=== PATIENT | male | born 1960 | race Caucasian/White ===

== ENCOUNTER 2018-09-25 14:16 | Emergency (ER) | payer MEDICARE ==
[~2018-09-25] VITALS: Ht 180.3 cm; Wt 99.8 kg
[~2018-09-25 14:16] MED LIST: ASPI-482 PO; CHOL20002 PO; CYCL10TA2 PO; DONE10TA61 PO; FLUT1DIS IH; FLUT9.9S NS; FURO20TA3 PO; GABA800T5 PO; INSU100I13 SQ; INSU100I17 SQ; LEXAPRO20 MG PO; LISI10TA2 PO; METF10007 PO; METO100T7 PO; NIAC1000 PO; PROAIR RESPICL90 MCG IH; SIMV20TA3 PO; TIOT18CA IH; TIZA2TAB PO
[2018-09-25 14:20] VITALS: BP 168/87
--- NOTE | 2018-09-25 14:54 | PHYS DOC ---
Past Medical History Past Medical History: COPD, Depression, Diabetes-Type II, Hypertension, Other Additional Past Medical Histor: Hyperlipidemia, Neruopathy Past Surgical History: No Surgical History Additional Information: Quit 20 years ago Alcohol Use: None Drug Use: None Adult General Chief Complaint Chief Complaint: FINGER INJURY HPI HPI Patient is a 58 year old [male] who presents with [pain and deformity to his right middle finger. Patient reports yesterday he had jammed his finger while he was working on something, reports he continues to have some discomfort to digit. States he did have a splint at home that he had put on it which seemed to help. But noted when he takes the splint off his finger returns to deformity. States full range of motion to other digits and extremities, States he has taken some ibuprofen and it seems to help. Reports it happened approximately 11:00 day prior, and he had tried pulling on his finger but it did not seem to improve. ] Review of Systems Review of Systems Constitutional: Denies fever or chills [] Eyes: Denies change in visual acuity, redness, or eye pain [] HENT: Denies nasal congestion or sore throat [] Respiratory: Denies cough or shortness of breath [] Cardiovascular: No additional information not addressed in HPI [] GI: Denies abdominal pain, nausea, vomiting, bloody stools or diarrhea [] : Denies dysuria or hematuria [] Musculoskeletal: Denies back pain or joint pain, complains of deformity to 3rd digit right hand [] Integument: Denies rash or skin lesions [] Neurologic: Denies headache, focal weakness or sensory changes [] Endocrine: Denies polyuria or polydipsia [] All other systems were reviewed and found to be within normal limits, except as documented in this note. Allergies Allergies Allergies Coded Allergies Type Severity Reaction Last Updated Verified No Known Drug Allergies 08/20/15 No Physical Exam Physical Exam Constitutional: Well developed, well nourished, no acute distress, non-toxic appearance. [] HENT: Normocephalic, atraumatic, bilateral external ears normal, oropharynx moist, no oral exudates, nose normal. [] Eyes: PERRLA, EOMI, conjunctiva normal, no discharge. [] Neck: Normal range of motion, no tenderness, supple, no stridor. [] Cardiovascular:Heart rate regular rhythm, no murmur [] Lungs & Thorax: Bilateral breath sounds clear to auscultation [] Abdomen: Bowel sounds normal, soft, no tenderness, no masses, no pulsatile masses. [] Skin: Warm, dry, no erythema, no rash. [] Back: No tenderness, no CVA tenderness. [] Extremities: No tenderness, no cyanosis, no clubbing, ROM intact, no edema. Right 3rd finger with splint in place. Patient noted to have deformity to DIP of 3rd digit, no tenderness, no swelling, no erythema. No lesions noted. sensation intact. Capillary refill brisk. [] Neurologic: Alert and oriented X 3, normal motor function, normal sensory fu nction, no focal deficits noted. [] Psychologic: Affect normal, judgement normal, mood normal. [] Current Patient Data Vital Signs Vital Signs Date Time Temp Pulse Resp B/P (MAP) Pulse Ox O2 Delivery O2 Flow Rate FiO2 09/25/18 14:20 97.8 76 20 168/87 (114) 97 Room Air 97.8 EKG EKG [] Radiology/Procedures Radiology/Procedures [No acute fracture noted. Ligamentous or tendon injury of left third finger ] Course & Med Decision Making Course & Med Decision Making Pertinent Labs and Imaging studies reviewed. (See chart for details) [Attempt to reduce digit without success, patient able to move digit partially, tolerates traction and hyperextension without significant discomfort. Due to injury being approximately 28 hours old, likely causing digit to not reduce. Will have digit splinted again and have patient follow up with ortho. Patient in agreement with plan of care] Dragon Disclaimer Dragon Disclaimer This electronic medical record was generated, in whole or in part, using a voice recognition dictation system. Departure Departure Impression: Primary Impression: Closed dislocation of third metacarpal bone of left hand Disposition: HOME, SELF-CARE Condition: GOOD Referrals: ADAMARIS NEELY MD (PCP) DEBORAH VU MD Patient Instructions: Finger Dislocation, Uemp-co-Szvl Additional Instructions: Due to the amount of time it has been out, we are unable to get the bone back in place. The radiologist read shows they suggest ligament or tendon injury to that digit as well, this could be preventing it from staying back in place. There was nothing broken on the x ray today Keep wearing the splint on your finger Follow up with Orthopedics - Dr Vu's office. DELIA WALL APRN Sep 25, 2018 14:54
--- NOTE | 2018-09-25 15:24 | RAD ---
Left hand 3 views. HISTORY: Left third finger deformity, jammed hand on bathtub one day ago 3 views were taken of the left hand. There is no fracture. There is posterior deviation of the distal phalanx of the third finger suggesting ligamentous injury or flexor tendon disruption. IMPRESSION: 1. No acute fracture. 2. Ligamentous or tendon injury left third finger. Electronically signed by: Pardeep Germain MD (09/25/2018 3:22 PM) [id number]
== END 2018-09-25 15:50 | disposition home or self-care (01) ==
LOC: ER 14:16
DX: S63.263A Dislocation of metacarpophalangeal joint of left middle finger, initial encounter (principal); J44.9 Chronic obstructive pulmonary disease, unspecified; I10 Essential (primary) hypertension; E11.40 Type 2 diabetes mellitus with diabetic neuropathy, unspecified; E78.5 Hyperlipidemia, unspecified; Z87.891 Personal history of nicotine dependence; W23.0XXA Caught, crushed, jammed, or pinched between moving objects, initial encounter; Y93.89 Activity, other specified; Y92.89 Other specified places as the place of occurrence of the external cause; Y99.8 Other external cause status
CPT/HCPCS: 26700; 73130; 99284-25

== ENCOUNTER → 2018-10-15 | Outpatient (CLI) | payer MEDICARE ==
[2018-09-25 14:20] VITALS: BP 168/87
--- NOTE | 2018-10-15 10:57 | CARD ---
MR#: [id number] Date of Study: 10/15/2018 Ordering Physician: HARINDER HATHAWAY, Referring Physician: HARINDER HATHAWAY, Tech: Jacey Ritchie [facility] APPROVED REPORT EXAM: Two-dimensional and M-mode echocardiogram with Doppler and color Doppler. Other Information Quality : AverageHR: 62bpm Rhythm : NSR INDICATION Cardiomyopathy 2D DIMENSIONS RVDd3.5 (2.9-3.5cm)Left Atrium(2D)3.5 (1.6-4.0cm) IVSd0.9 (0.7-1.1cm)Aortic Root(2D)3.0 (2.0-3.7cm) LVDd5.4 (3.9-5.9cm)LVOT Diameter2.0 (1.8-2.4cm) PWd0.8 (0.7-1.1cm)LVDs4.2 (2.5-4.0cm) FS (%) 22.4 %SV63.7 ml LVEF(%)45.0 (>50%) M-Mode DIMENSIONS Left Atrium(MM)4.02 (2.5-4.0cm)Aortic Root3.05 (2.2-3.7cm) Aortic Valve AoV Peak Dave.116.1cm/sAoV VTI24.4cm AO Peak GR.5.4mmHgLVOT Peak Dave.73.5cm/s AO Mean GR.3mmHgAVA (VMAX)1.90cm2 NIKKI (VTI)1.90cm2 Mitral Valve MV E Finqfyqd09.4cm/sMV DECEL GJAP010ik MV A Zvxrfkqm98.3cm/sE/A Ratio0.7 Pulmonary Valve PV Peak Bwyjppaz06.4cm/s Tricuspid Valve TR P. Gcyziofb935vq/sRAP WQZQEXBY0yaDm TR Peak Gr.93icFrLEOC84kbRq LEFT VENTRICLE The left ventricle is normal size. There is normal left ventricular wall thickness. Left ventricle sy stolic function is mildly diminished. The Ejection Fraction is 45-50%. There is global hypokinesis of the left ventricle. Transmitral Doppler flow pattern is Grade I-abnormal relaxation pattern. RIGHT VENTRICLE The right ventricle is normal size. There is normal right ventricular wall thickness. The right ventr icular systolic function is normal. ATRIA The left atrium size is normal. The right atrium size is normal. The interatrial septum is intact wit h no evidence for an atrial septal defect or patent foramen ovale as noted on 2-D or Doppler imaging. AORTIC VALVE The aortic valve is normal in structure and function. The aortic valve is trileaflet. Doppler and Col or Flow revealed trace aortic regurgitation. There is no significant aortic valvular stenosis. There is no aortic valvular vegetation. MITRAL VALVE The mitral valve is normal in structure and function. There is no evidence of mitral valve prolapse. There is no mitral valve stenosis. Doppler and Color-flow revealed trace to mild mitral regurgitation . TRICUSPID VALVE The tricuspid valve is normal in structure and function. Doppler and Color Flow revealed mild tricusp id regurgitation. The PA pressure was estimated at 27 mmHg. There is no tricuspid valve prolapse or v egetation. There is no tricuspid valve stenosis. PULMONIC VALVE The pulmonary valve is normal in structure and function. Doppler and Color Flow revealed trace pulmon ic valvular regurgitation. There is no pulmonic valvular stenosis. GREAT VESSELS The aortic root is normal in size. The ascending aorta is normal in size. The IVC is normal in size a nd collapses >50% with inspiration. PERICARDIAL EFFUSION There is no evidence of significant pericardial effusion. Critical Notification Critical Value: No <Conclusion> Left ventricle systolic function is mildly diminished. The Ejection Fraction is 45-50%. Transmitral Doppler flow pattern is Grade I-abnormal relaxation pattern. Trace to mild mitral regurgitation. Mild tricuspid regurgitation. The PA pressure was estimated at 27 mmHg. There is no evidence of significant pericardial effusion. Signed by : Pepito Troy, Electronically Approved : 10/15/2018 10:56:40
--- NOTE | 2018-10-15 14:29 | RAD ---
MR#: [id number] Date of Study: 10/15/2018 Ordering Physician: HARINDER TRUONG, Referring Physician: HARINDER TRUONG, Tech: Mitra Pickard RVT,GUILLERMO APPROVED REPORT Patient Location: OUT-PATIENT Indications Claudication: PAD Risk Factors Hypertension Hyperlipidemia Smoking VELOCITY AND DOPPLER WAVEFORM ANALYSIS RIGHT cm/secWaveformSeverity LEFT cm/secWaveform Severity pCFA 118.5TriphasicpCFA 112.5Triphasic Prof Fem Art. 50.3BiphasicProf Fem Art. 55.7Biphasic Fem Art Prox. 98.1TriphasicFem Art Prox. 112.5Triphasic Fem Art Mid. 100.9TriphasicFem Art Mid. 106.2Triphasic Fem Art Dist. 87.0TriphasicFem Art Dist. 88.3Triphasic Pop Art(Fossa) 61.1TriphasicPop Art(AK) 62.0Triphasic COMMISSIONS COORDINATOR Prox. 63.6BiphasicPTA Prox. 61.1Biphasic COMMISSIONS COORDINATOR Dist. 105.2TriphasicPTA Dist. 89.7Triphasic Per Art Dist.58.6BiphasicPer Art Dist.75.9Biphasic RENETTA Dist. 64.9BiphasicATA Dist. 81.0Biphasic DPA 71BiphasicDPA 96Biphasic Findings Grayscale images of the bilateral lower extremity arterial vessels reveals mild diffuse plaque. Spectral waveforms are mostly triphasic and biphasic with velocities as noted above. There is three-v essel runoff below the knee. No significant focal stenosis identified. Critical Notification Critical Value: No <Conclusion> No focal stenosis identified bilaterally. Signed by : Harinder Truong, Electronically Approved : 10/15/2018 14:29:10
--- NOTE | 2018-10-15 14:31 | RAD ---
MR#: [id number] Date of Study: 10/15/2018 Ordering Physician: HARINDER TRUONG, Referring Physician: HARINDER TRUONG, Tech: Mitra Pickard RVT,GUILLERMO APPROVED REPORT Patient Location: OUT-PATIENT Risk Factors PAD Hypertension Smoking Duplex Results A/PTransverseLongitudinal Proximal Aorta 2.6cm2.5cm Mid Aorta 2.0cm1.9cm Distal Aorta 1.9cm1.6cm Rt. Common Iliac Artery1.1cm0.8cm Lt. Common Iliac Artery 1.1cm1.1cm Doppler VelocityWaveform Proximal Aorta 85.9 cm/sec Aorta Mid. 69.2 cm/sec Distal Aorta 71.6 cm/sec Rt. Common Iliac Mhifgv13.0 cm/sec Lt. Common Iliac Artery 82.7 cm/sec Findings Normal caliber abdominal aorta without any obvious evidence of aneurysm. Normal velocities. Moderate plaque diffusely noted. Critical Notification Critical Value: No <Conclusion> No obvious aneurysm identified on screening AAA u/s. Signed by : Harinder Truong, Electronically Approved : 10/15/2018 14:30:27
--- NOTE | 2018-10-15 14:56 | RAD ---
MR#: [id number] Date of Study: 10/15/2018 Ordering Physician: HARINDER TRUONG, Referring Physician: HARINDER TRUONG, Tech: Mitra Pickard RVT, GUILLERMO APPROVED REPORT Patient Location: OUT-PATIENT Laterality:Bilateral Risk Factors Hypertension: Hyperlipidemia PAD Smoking Doppler Spectral Velocity Analysis Right Left pCCA 89/17 cm/spCCA 102/24 cm/s mCCA 87/17 cm/smCCA 83/22 cm/s dCCA 80/19 cm/sdCCA 67/17 cm/s ECA 55/10 cm/sECA 68/10 cm/s pICA 64/19 cm/spICA 55/25 cm/s [place] 40/10 cm/smICA 55/24 cm/s dICA 46/15 cm/sdICA 116/40 cm/s Vert. 52/ cm/sVert. 58/ cm/s ICA/CCA 0.72ICA/CCA 1.14 Findings Grayscale images of the bilateral common carotid, internal and external carotid vessels reveal diffus e mild atherosclerotic plaque. No focal stenosis identified. Spectral waveforms are within normal limits. Velocities are essentially within normal limits and the internal and external carotid vessels with an tegrade vertebral velocities. Overall 0 to less than 50% stenosis by velocity criteria. Normal ICA to CCA ratios bilaterally. Critical Notification Critical Value: No <Conclusion> No focal carotid occlusive disease bilaterally. Signed by : Harinder Turong, Electronically Approved : 10/15/2018 14:55:45
== END | disposition home or self-care (01) ==
LOC: US 08:27
PROVIDERS: ATTEND Internal Medicine Cardiovascular Disease
DX: I08.1 Rheumatic disorders of both mitral and tricuspid valves (principal); I65.23 Occlusion and stenosis of bilateral carotid arteries; I10 Essential (primary) hypertension; E78.5 Hyperlipidemia, unspecified; I42.8 Other cardiomyopathies; I73.9 Peripheral vascular disease, unspecified; F17.200 Nicotine dependence, unspecified, uncomplicated
CPT/HCPCS: 76770; 93306; 93880; 93925

== ENCOUNTER → 2019-10-17 | Outpatient (CLI) | payer MEDICARE ==
[~2019-10-17] MED LIST changes: +SIMV20TA18 PO; -SIMV20TA3 PO; -TIZA2TAB PO; +TIZA2TAB4 PO
--- NOTE | 2019-10-17 10:48 | CARD ---
MR#: [id number] Date of Study: 10/17/2019 Ordering Physician: HARINDER HATHAWAY, Referring Physician: HARINDER HATHAWAY, Tech: Christi Foley [facility] APPROVED REPORT EXAM: Two-dimensional and M-mode echocardiogram with Doppler and color Doppler. Other Information Quality : Good INDICATION Non-Ischemic Cardiomyopathy 2D DIMENSIONS RVDd3.0 (2.9-3.5cm)Left Atrium(2D)3.5 (1.6-4.0cm) IVSd0.9 (0.7-1.1cm)Aortic Root(2D)3.0 (2.0-3.7cm) LVDd5.7 (3.9-5.9cm)LVOT Diameter2.3 (1.8-2.4cm) PWd0.9 (0.7-1.1cm)LVDs3.9 (2.5-4.0cm) FS (%) 25.0 %SV94.3 ml LVEF(%)50.0 (>50%) Aortic Valve AoV Peak Dave.122.9cm/sAoV VTI24.1cm AO Peak GR.6.0mmHgLVOT Peak Dave.92.8cm/s AO Mean GR.4mmHgAVA (VMAX)3.18cm2 NIKKI (VTI)3.40cm2 Mitral Valve MV E Fbbfiiki01.7cm/sMV DECEL [id number] MV A Nwjdmmtf64.2cm/sE/A Ratio0.5 Tricuspid Valve TR P. Mfpqdzik152sk/sRAP KWEZDEGS0ouXq TR Peak Gr.69bbKpKOFS28czGg Pulmonary Vein S1 Tnonriki51.2cm/sD2 Coacvwwc69.3cm/s LEFT VENTRICLE The left ventricle is normal size. There is normal left ventricular wall thickness. Left ventricle sy stolic function is mildly decreased. EF 45% Mild global hypokinesis. Transmitral Doppler flow pattern is Grade I-abnormal relaxation pattern. RIGHT VENTRICLE The right ventricle is normal size. The right ventricular systolic function is normal. ATRIA The left atrium size is normal. The right atrium size is normal. The interatrial septum is intact wit h no evidence for an atrial septal defect or patent foramen ovale as noted on 2-D or Doppler imaging. AORTIC VALVE The aortic valve is calcified but opens well. Doppler and Color Flow revealed no significant aortic r egurgitation. There is no significant aortic valvular stenosis. MITRAL VALVE The mitral valve is calcified but opens well. There is no evidence of mitral valve prolapse. There is no mitral valve stenosis. Doppler and Color Flow revealed no mitral valve regurgitation noted. TRICUSPID VALVE The tricuspid valve is normal in structure and function. Doppler and Color Flow revealed trace to mil d tricuspid regurgitation. The PA pressure was estimated at 28 mmHg. There is no tricuspid valve sten osis. PULMONIC VALVE The pulmonic valve is not well visualized. Doppler and Color Flow revealed no pulmonic valvular regur gitation. There is no pulmonic valvular stenosis. GREAT VESSELS The aortic root is normal in size. The ascending aorta is normal in size. The IVC is normal in size a nd collapses >50% with inspiration. PERICARDIAL EFFUSION There is no evidence of significant pericardial effusion. Critical Notification Critical Value: No <Conclusion> Left ventricle systolic function is mildly decreased. EF 45% Mild global hypokinesis. Signed by : Harinder Hathaway, Electronically Approved : 10/17/2019 10:47:30
== END | disposition home or self-care (01) ==
LOC: ECHO 08:14
PROVIDERS: ATTEND Internal Medicine Cardiovascular Disease
DX: I08.3 Combined rheumatic disorders of mitral, aortic and tricuspid valves (principal); I42.9 Cardiomyopathy, unspecified
CPT/HCPCS: 93306

== ENCOUNTER → 2020-12-05 | Outpatient (CLI) | payer MEDICARE ==
[~2020-12-05] MED LIST changes: +LISI10TA16 PO; -LISI10TA2 PO; +TIZA-58 PO; -TIZA2TAB4 PO
[2020-12-05 13:31] LABS: BASO # 0.1 x10^3/uL (0.0-0.2); BASO % 1 % (0-3); EOS # 0.6 x10^3/uL (0.0-0.7); EOS % 7 % (0-3); HEMATOCRIT 35.5 % (39.0-53.0); HEMOGLOBIN 12.2 g/dL (13.0-17.5); LYMPH # 1.5 x10^3/uL (1.0-4.8); LYMPH % 18 % (24-48); MEAN CORPUSCULAR HEMOGLOBIN 29 pg (25-35); MEAN CORPUSCULAR HGB CONC 34 g/dL (31-37); MEAN CORPUSCULAR VOLUME 85 fL (79-100); MONO # 0.5 x10^3/uL (0.0-1.1); MONO % 6 % (0-9); NEUT # 5.9 x10^3/uL (1.8-7.7); NEUT % 68 % (31-73); PLATELET COUNT 228 x10^3/uL (140-400); RED BLOOD COUNT 4.18 x10^6/uL (4.30-5.70); RED CELL DISTRIBUTION WIDTH 13.4 % (11.5-14.5); WHITE BLOOD COUNT 8.6 x10^3/uL (4.0-11.0)
[2020-12-05 13:45] LABS: ALBUMIN 4.2 g/dL (3.4-5.0); ALBUMIN/GLOBULIN RATIO 1.4 (1.0-1.7); CALCIUM 9.4 mg/dL (8.5-10.1); CREATININE 1.6 mg/dL (0.7-1.3); GFR 44.2; POTASSIUM 4.7 mmol/L (3.5-5.1); TOTAL BILIRUBIN 0.3 mg/dL (0.2-1.0); TOTAL PROTEIN 7.1 g/dL (6.4-8.2)
[2020-12-05 13:47] LABS: CHOLESTEROL/HDL RATIO 3.4
== END ==
LOC: LAB 13:06
PROVIDERS: ATTEND Internal Medicine Cardiovascular Disease
DX: I10 Essential (primary) hypertension (principal)
CPT/HCPCS: 36415; 80053; 80061; 85025

== ENCOUNTER → 2021-01-25 | Outpatient (CLI) | payer MEDICARE ==
--- NOTE | 2021-01-25 10:39 | CARD ---
MR#: [id number] Date of Study: 01/25/2021 Ordering Physician: HARINDER HATHAWAY, Referring Physician: HARINDER HATHAWAY, Tech: Reina Madison [facility] APPROVED REPORT EXAM: Two-dimensional and M-mode echocardiogram with Doppler and color Doppler. Other Information Quality : FairTechnically LimitedHR: 69bpm Rhythm : NSRTechnically limited study due to body habitus. INDICATION Cardiomyopathy RISK FACTORS Hypertension 2D DIMENSIONS RVDd4.2 (2.9-3.5cm)IVSd0.9 (0.7-1.1cm) LVDd5.5 (3.9-5.9cm)PWd0.9 (0.7-1.1cm) IVSs1.4 (0.8-1.2cm)LVDs3.9 (2.5-4.0cm) FS (%) 29.7 %PWs1.5 (0.8-1.2cm) SV82.1 mlLVEF(%)56.1 (>50%) Aortic Valve AoV Peak Dave.135.4cm/sAoV VTI28.7cm AO Peak GR.7.3mmHgLVOT Peak Dave.105.6cm/s LVOT VTI 25.12cmAO Mean GR.4mmHg Mitral Valve MV E Jvsxyveu46.1cm/sMV DECEL [id number] MV A Inkjjfto46.2cm/sMV KTB32ij E/A Ratio0.9MVA (PHT)5.65cm2 TDI E/Lateral E'6.5 Pulmonary Valve PV Peak Aeofrbai91.3cm/sPV Peak Grad.3mmHg Tricuspid Valve TR P. Xeaswxjh489ci/sTR Peak Gr.27mmHg LEFT VENTRICLE The left ventricle is normal size. There is normal left ventricular wall thickness. The left ventricu lar systolic function is normal. The ejection fraction is 55%. There is normal LV segmental wall jasper on. Transmitral Doppler flow pattern is Grade I-abnormal relaxation pattern. RIGHT VENTRICLE The right ventricle is normal size. There is normal right ventricular wall thickness. The right ventr icular systolic function is normal. ATRIA The left atrium size is normal. The right atrium size is normal. The interatrial septum is intact wit h no evidence for an atrial septal defect or patent foramen ovale as noted on 2-D or Doppler imaging. AORTIC VALVE The aortic valve is normal in structure and function. Doppler and Color Flow revealed no significant aortic regurgitation. There is no significant aortic valvular stenosis. MITRAL VALVE The mitral valve is normal in structure and function. There is no evidence of mitral valve prolapse. There is no mitral valve stenosis. Doppler and Color-flow revealed trace to mild mitral regurgitation . TRICUSPID VALVE The tricuspid valve is normal in structure and function. Doppler and Color Flow revealed trace tricus pid regurgitation. Estimated PAP 31 mmHg. There is no tricuspid valve stenosis. PULMONIC VALVE The pulmonary valve is normal in structure and function. Doppler and Color Flow revealed trace pulmon ic valvular regurgitation. GREAT VESSELS The aortic root is normal in size. The ascending aorta is normal in size. The IVC is normal in size a nd collapses >50% with inspiration. PERICARDIAL EFFUSION There is no evidence of significant pericardial effusion. Critical Notification Critical Value: No <Conclusion> The left ventricular systolic function is normal. The ejection fraction is 55%. There is normal LV segmental wall motion. Transmitral Doppler flow pattern is Grade I-abnormal relaxation pattern. Trace to mild mitral regurgitation. Trace tricuspid regurgitation. Estimated PAP 31 mmHg. There is no evidence of significant pericardial effusion. Signed by : Pepito Troy, Electronically Approved : 01/25/2021 10:39:12
== END ==
LOC: ECHO 08:39
PROVIDERS: ATTEND Internal Medicine Cardiovascular Disease
DX: I34.0 Nonrheumatic mitral (valve) insufficiency (principal); I42.9 Cardiomyopathy, unspecified
CPT/HCPCS: 93306